=== PATIENT | female | born 1945 | race Caucasian/White ===

== ENCOUNTER 2017-03-31 03:21 | Inpatient (IN) | payer MEDICAID, MEDICARE, OTHER ==
[~2017-03-31] VITALS: Ht 154.9 cm; Wt 74.9 kg
[~2017-03-31 03:21] MED LIST: ACID1TAB3 PO; ACLI400A2 INH; AMIT25TA PO; AMIT75TA PO; ASPI325T17 PO; ASPI325T80 PO; ATOR20TA9 PO; CEFD300C37 PO; CIPR500S2 PO; DIPH25CA61 PO; FLUD0.1T PO; FLUO40CA2 PO; GABA300C10 PO; HYDR-3240 PO; HYDR1TAB12 PO; INSU100C SQ-INSULIN; INSU100I13 SC; INSU100I17 SC; INSU100V11 SC; INSU100V13 SC; INSU300I SQ; LEVO750T26 PO; LOPE2TAB59 PO; METF500T4 PO; METR500T8 PO; ONDA4TAB10 PO; PANT40TA5 PO; PIOG45TA20 PO; TIOT18CA INH; atrovastatin PO
[2017-03-31] MEDS ORDERED: ONDANSETRON 2MG/ML, 2ML ONE (03:52)
[2017-03-31] MEDS ORDERED: ONDANSETRON 2MG/ML, 2ML IVPush ONE (04:00)
[2017-03-31] MEDS ORDERED: ONDANSETRON ODT 4 MG ONE (04:40)
[2017-03-31 04:57] LABS: HEMOGLOBIN 15.5 g/dL (11.7-16.4); WHITE BLOOD COUNT 14.8 x10^3/uL (3.4-10)
[2017-03-31] MEDS ORDERED: ONDANSETRON ODT 4 MG PO ONE (05:00)
[2017-03-31] MEDS ORDERED: CEFTRIAXONE PMX 1GM/50ML 50 ML IV ONE (05:00)
[2017-03-31 05:06] LABS: ASPARTATE AMINO TRANSFERASE 18 U/L (15-37); BLOOD UREA NITROGEN 30 mg/dL (7-18)
[2017-03-31] MEDS ORDERED: INSULIN REGULAR 100 UNITS/ML, 3ML VIAL ONE (05:24)
[2017-03-31] MEDS ORDERED: INSULIN REGULAR 100 UNITS/ML, 3ML VIAL IVPush ONE (05:30)
[2017-03-31] MEDS ORDERED: SODIUM CHLORIDE 0.9% 1,000ML IVBOLUS ONE (05:30)
[2017-03-31] MEDS ORDERED: CEFTRIAXONE PMX 1GM/50ML 50 ML ONE (05:35)
[2017-03-31] MEDS ORDERED: BISACODYL 10 MG SUPP PR PRN (08:00)
[2017-03-31] MEDS ORDERED: ACETAMINOPHEN 325 MG TABLET PO PRN (08:00)
[2017-03-31] MEDS ORDERED: ONDANSETRON ODT 4 MG PO PRN (08:00)
[2017-03-31] MEDS ORDERED: LABETALOL 5MG/ML, 20ML IVPush PRN (08:00)
[2017-03-31] MEDS ORDERED: DOCUSATE 100 MG CAPSULE PO PRN (08:00)
[2017-03-31] MEDS ORDERED: ONDANSETRON 2MG/ML, 2ML IVPush PRN (08:00)
[2017-03-31] MEDS: NICOTINE 7 MG/24 HR PATCH.TD24 TD SCH (08:14)
[2017-03-31 11:17] VITALS: BP 110/70
[2017-03-31] MEDS: SODIUM CHLORIDE 0.9% 1,000 ML IV SCH ×2 (11:47→21:12)
[2017-03-31] MEDS: GABAPENTIN 300 MG CAPSULE PO SCH ×2 (11:48→21:12)
[2017-03-31] MEDS: HEPARIN 5,000 UNITS/ML, 1ML SQ SCH ×2 (11:48→17:38)
[2017-03-31] MEDS: PANTOPROZOLE 40MG TABLET PO SCH ×2 (11:48→21:11)
[2017-03-31] MEDS: FLUOXETINE 20 MG CAPSULE PO SCH (11:48)
[2017-03-31 13:00] VITALS: BP 110/70
[2017-03-31] MEDS: INSULIN ASPART 100 UNITS/ML, PEN SQ-INSULIN SCH ×2 (17:37→21:12)
[2017-03-31] MEDS: INSULIN DETEMIR 100 UNITS/ML, PEN SQ-INSULIN SCH (17:57)
[2017-03-31 19:41] VITALS: BP 105/71
[2017-03-31] MEDS: ATORVASTATIN 20 MG TABLET PO SCH (21:11)
[2017-03-31] MEDS: AMITRIPTYLINE 25 MG TABLET PO SCH (21:11)
[2017-03-31] MEDS ORDERED: INSULIN ASPART 70/30 100U/ML, PEN SQ-INSULIN ONE (22:00)
[2017-04-01 02:49] VITALS: BP 138/56
[2017-04-01 06:16] LABS: HEMATOCRIT 39.1 % (34.6-47.8); WHITE BLOOD COUNT 10.4 x10^3/uL (3.4-10)
[2017-04-01 06:45] LABS: ASPARTATE AMINO TRANSFERASE 14 U/L (15-37); BLOOD UREA NITROGEN 26 mg/dL (7-18)
[2017-04-01] MEDS: SODIUM CHLORIDE 0.9% 1,000 ML IV SCH (07:00)
[2017-04-01] MEDS: INSULIN ASPART 100 UNITS/ML, PEN SQ-INSULIN SCH ×4 (07:00→21:05)
[2017-04-01 07:15] VITALS: BP 155/76
[2017-04-01] MEDS: HEPARIN 5,000 UNITS/ML, 1ML SQ SCH ×3 (08:00→16:36)
[2017-04-01] MEDS: NICOTINE 7 MG/24 HR PATCH.TD24 TD SCH (08:00)
[2017-04-01] MEDS: FLUOXETINE 20 MG CAPSULE PO SCH (08:45)
[2017-04-01] MEDS: PANTOPROZOLE 40MG TABLET PO SCH ×2 (08:45→21:03)
[2017-04-01] MEDS: CEFTRIAXONE PMX 1GM/50ML 50 ML IV SCH (08:45)
[2017-04-01] MEDS: GABAPENTIN 300 MG CAPSULE PO SCH ×2 (08:48→21:03)
[2017-04-01 15:04] VITALS: BP 126/57
[2017-04-01] MEDS: INSULIN DETEMIR 100 UNITS/ML, PEN SQ-INSULIN SCH (16:36)
[2017-04-01 19:23] VITALS: BP 130/95
[2017-04-01] MEDS: ATORVASTATIN 20 MG TABLET PO SCH (21:03)
[2017-04-01] MEDS: AMITRIPTYLINE 25 MG TABLET PO SCH (21:03)
[2017-04-02] MEDS: HEPARIN 5,000 UNITS/ML, 1ML SQ SCH ×3 (00:45→16:46)
[2017-04-02 02:23] VITALS: BP 126/75
[2017-04-02 07:53] VITALS: BP 107/66
[2017-04-02] MEDS: NICOTINE 7 MG/24 HR PATCH.TD24 TD SCH (08:00)
[2017-04-02] MEDS: CEFTRIAXONE PMX 1GM/50ML 50 ML IV SCH (08:04)
[2017-04-02] MEDS: GABAPENTIN 300 MG CAPSULE PO SCH ×2 (08:05→21:08)
[2017-04-02] MEDS: FLUOXETINE 20 MG CAPSULE PO SCH (08:05)
[2017-04-02] MEDS: PANTOPROZOLE 40MG TABLET PO SCH ×2 (08:05→21:08)
[2017-04-02] MEDS: SODIUM CHLORIDE 0.9% 1,000 ML IV SCH ×2 (08:05→21:08)
[2017-04-02] MEDS: INSULIN ASPART 100 UNITS/ML, PEN SQ-INSULIN SCH ×4 (08:06→21:09)
[2017-04-02] MEDS ORDERED: POTASSIUM PHOSPHATE 22 MEQ in SODIUM CHLORIDE 0.9% 500 ML IV ONE (09:00)
[2017-04-02 13:22] VITALS: BP 148/79
[2017-04-02] MEDS: INSULIN DETEMIR 100 UNITS/ML, PEN SQ-INSULIN SCH (16:46)
[2017-04-02 18:30] VITALS: BP 143/77
[2017-04-02] MEDS: AMITRIPTYLINE 25 MG TABLET PO SCH (21:08)
[2017-04-02] MEDS: ATORVASTATIN 20 MG TABLET PO SCH (21:08)
[2017-04-03] MEDS: HEPARIN 5,000 UNITS/ML, 1ML SQ SCH ×3 (00:02→16:00)
[2017-04-03 00:27] VITALS: BP 149/68
[2017-04-03 05:33] LABS: HEMATOCRIT 39.9 % (34.6-47.8); HEMOGLOBIN 13.4 g/dL (11.7-16.4); WHITE BLOOD COUNT 9.1 x10^3/uL (3.4-10)
[2017-04-03 06:09] LABS: BLOOD UREA NITROGEN 20 mg/dL (7-18)
[2017-04-03] MEDS: INSULIN ASPART 100 UNITS/ML, PEN SQ-INSULIN SCH ×3 (07:00→18:17)
[2017-04-03 07:06] VITALS: BP 140/66
[2017-04-03] MEDS: NICOTINE 7 MG/24 HR PATCH.TD24 TD SCH (08:00)
[2017-04-03] MEDS: FLUOXETINE 20 MG CAPSULE PO SCH (08:03)
[2017-04-03] MEDS: PANTOPROZOLE 40MG TABLET PO SCH (08:03)
[2017-04-03] MEDS: GABAPENTIN 300 MG CAPSULE PO SCH (08:03)
[2017-04-03] MEDS: SODIUM CHLORIDE 0.9% 1,000 ML IV SCH (09:05)
[2017-04-03] MEDS: CEFTRIAXONE PMX 1GM/50ML 50 ML IV SCH (09:05)
[2017-04-03] MEDS ORDERED: SODIUM PHOSPHATE 20 MMOL in SODIUM CHLORIDE 0.9% 500 ML IV ONE (11:30)
[2017-04-03] MEDS ORDERED: ERGOCALCIFEROL 50,000 UNIT CAPSULE PO SCH (13:00)
[2017-04-03] MEDS ORDERED: INSU100C SQ-INSULIN (13:11)
[2017-04-03] MEDS ORDERED: DOCU-131 PO (13:11)
[2017-04-03] MEDS ORDERED: ERGO500017 PO (13:11)
[2017-04-03] MEDS ORDERED: CEFD300C37 PO (13:11)
[2017-04-03 13:40] VITALS: BP 144/76
[2017-04-03] MEDS ORDERED: INSULIN DETEMIR 100 UNITS/ML, PEN SQ-INSULIN SCH (17:00)
[2017-04-09] MEDS ORDERED: INSU300I SQ (16:50)
[2017-04-09] MEDS ORDERED: INSU100I18 SQ-INSULIN (16:50)
[2017-04-09] MEDS ORDERED: ASPI-650 PO (16:52)
== END 2017-04-03 18:37 | disposition home or self-care (01) | DRG 683 ==
LOC: ED 05:01 → EDIP 06:26 → 4EST 10:59
PROVIDERS: ADMIT Family Medicine; ATTEND Family Medicine
DX: N17.9 Acute kidney failure, unspecified (principal); N39.0 Urinary tract infection, site not specified; E44.0 Moderate protein-calorie malnutrition; E11.22 Type 2 diabetes mellitus with diabetic chronic kidney disease; E11.51 Type 2 diabetes mellitus with diabetic peripheral angiopathy without gangrene; E11.65 Type 2 diabetes mellitus with hyperglycemia; N12 Tubulo-interstitial nephritis, not specified as acute or chronic; N18.9 Chronic kidney disease, unspecified; E55.9 Vitamin D deficiency, unspecified; E78.5 Hyperlipidemia, unspecified; B96.20 Unspecified Escherichia coli [E. coli] as the cause of diseases classified elsewhere; E83.39 Other disorders of phosphorus metabolism; F17.200 Nicotine dependence, unspecified, uncomplicated; J44.9 Chronic obstructive pulmonary disease, unspecified; K21.9 Gastro-esophageal reflux disease without esophagitis; Z87.442 Personal history of urinary calculi; Z83.3 Family history of diabetes mellitus; Z59.9 Problem related to housing and economic circumstances, unspecified; Z98.42 Cataract extraction status, left eye; Z98.41 Cataract extraction status, right eye; Z88.6 Allergy status to analgesic agent; Z71.6 Tobacco abuse counseling; Z88.3 Allergy status to other anti-infective agents; Z88.5 Allergy status to narcotic agent; Z88.0 Allergy status to penicillin
CPT/HCPCS: 36415; 80048; 80053; 80061; 81001; 82010; 82306; 82607; 82947; 82962; 83036; 83605; 83690; 83735; 84100; 84439; 84443; 85025; 85610; 87040; 87077; 87086; 87186; 93005; 96361; 96365; 96375; J0696; J1644; J1815; Q0162; J7030; J7040

== ENCOUNTER 2017-05-07 04:37 | Inpatient (IN) | payer MEDICARE ==
[~2017-05-07] VITALS: Ht 167.6 cm; Wt 77.0 kg
[~2017-05-07 04:37] MED LIST changes: +ASPI-650 PO; +DOCU-131 PO; +ERGO500017 PO; +INSU100I18 SQ-INSULIN
[2017-05-07] MEDS ORDERED: ONDANSETRON 2MG/ML, 2ML ONE (05:04)
[2017-05-07 05:23] LABS: MEAN CORPUSCULAR HGB CONC 32.4 g/dL (32.4-35.8); MEAN CORPUSCULAR VOLUME 89.6 fL (80-100); MEAN PLATELET VOLUME 8.6 fL (7.4-10.4); PLATELET COUNT 428 x10^3/uL (130-400); RED BLOOD COUNT 5.35 x10^6/uL (3.82-5.3); RED CELL DISTRIBUTION WIDTH 15.3 % (9.6-15.2)
[2017-05-07] MEDS ORDERED: ONDANSETRON 2MG/ML, 2ML IVPush ONE (05:30)
[2017-05-07] MEDS ORDERED: SODIUM CHLORIDE FLUSH 10ML SYR IVF ONE (05:30)
[2017-05-07] MEDS ORDERED: SODIUM CHLORIDE 0.9% 1,000ML IVBOLUS ONE ×3 (05:30→08:00)
[2017-05-07 05:45] LABS: ALBUMIN 3.4 g/dL (3.4-5.0); ANION GAP 17 mmol/L (5-15); CHLORIDE 100 mmol/L (98-107)
[2017-05-07 05:48] LABS: ALANINE AMINOTRANSFERASE 22 U/L (12-78); ALKALINE PHOSPHATASE 127 U/L (45-117); BILIRUBIN,TOTAL 0.5 mg/dL (0.2-1.0); CREATININE 3.47 mg/dL (0.55-1.02); TOTAL PROTEIN 9.3 g/dL (6.4-8.2)
[2017-05-07 05:49] LABS: BASOPHILS # (AUTO) 0.06 x10^3/uL (0-0.1); BASOPHILS % (AUTO) 0 % (0-1); EOSINOPHILS # (AUTO) 0.15 x10^3/uL (0-0.4); EOSINOPHILS % (AUTO) 1 % (1-7); LYMPHOCYTES # (AUTO) 4.64 x10^3/uL (1-3.4); LYMPHOCYTES % (AUTO) 25 % (22-44); MD SCAN; MONOCYTES # (AUTO) 0.67 x10^3/uL (0.2-0.8); MONOCYTES % (AUTO) 4 % (2-9); NEUTROPHILS % (AUTO) 70 % (42-75)
[2017-05-07 07:58] LABS: CULTURE INDICATED? YES; MICROSCOPIC INDICATED
[2017-05-07] MEDS ORDERED: CEFTRIAXONE PMX 1GM/50ML 50 ML IV ONE (08:00)
[2017-05-07] MEDS ORDERED: CEFTRIAXONE PMX 1GM/50ML 50 ML ONE (08:04)
[2017-05-07] MEDS ORDERED: SODIUM CHLORIDE 0.9% 1,000 ML IV SCH (09:30)
[2017-05-07] MEDS ORDERED: ONDANSETRON 2MG/ML, 2ML IVPush PRN (09:30)
[2017-05-07] MEDS ORDERED: ACETAMINOPHEN 325 MG TABLET PO PRN (09:30)
[2017-05-07] MEDS ORDERED: FLUCONAZOLE 200 MG/100 ML 100 ML IV SCH (09:30)
[2017-05-07 09:32] LABS: CLOSTRIDIUM DIFFICILE ANTIGEN NEGATIVE; CLOSTRIDIUM DIFFICILE TOXIN NEGATIVE (Negative)
[2017-05-07] MEDS ORDERED: ALBUTEROL/IPRATROPIUM 2.5MG/0.5MG, 3 ML NPPB PRN (10:00)
[2017-05-07] MEDS: NICOTINE 14MG/24 HR PATCH.TD24 TD SCH (10:00)
[2017-05-07] MEDS: INSULIN ASPART 100 UNITS/ML, PEN SQ-INSULIN SCH ×3 (11:00→22:23)
[2017-05-07] MEDS ORDERED: HYDROmorphone 2 MG/ML, 1ML ONE (11:43)
[2017-05-07 12:36] VITALS: BP 110/54
[2017-05-07 14:57] LABS: CREATININE 2.16 mg/dL (0.55-1.02)
[2017-05-07] MEDS: GABAPENTIN 300 MG CAPSULE PO SCH ×2 (17:01→21:07)
[2017-05-07] MEDS: D5%-0.9% NACL 1,000 ML IV SCH (17:24)
[2017-05-07] MEDS ORDERED: DEXTROSE 4 GM TAB.CHEW PO PRN (17:30)
[2017-05-07] MEDS ORDERED: GLUCAGON 1 MG IM PRN (17:30)
[2017-05-07] MEDS ORDERED: DEXTROSE 50%, 50ML SYRINGE IVPush PRN (17:30)
[2017-05-07 18:30] VITALS: BP 137/66
[2017-05-07] MEDS: HEPARIN 5,000 UNITS/ML, 1ML SQ SCH (21:08)
[2017-05-07] MEDS: ATORVASTATIN 20 MG TABLET PO SCH (21:08)
[2017-05-07] MEDS: SODIUM CHLORIDE FLUSH 10ML SYR IVF SCH (21:08)
[2017-05-07] MEDS: INSULIN DETEMIR 100 UNITS/ML, PEN SQ-INSULIN SCH (22:24)
[2017-05-08] MEDS: D5%-0.9% NACL 1,000 ML IV SCH ×3 (01:31→21:46)
[2017-05-08 04:08] VITALS: BP 99/59
[2017-05-08 05:41] LABS: ANION GAP 7 mmol/L (5-15); CALCIUM 7.6 mg/dL (8.5-10.1); CHLORIDE 116 mmol/L (98-107); CREATININE 1.46 mg/dL (0.55-1.02)
[2017-05-08] MEDS: INSULIN ASPART 100 UNITS/ML, PEN SQ-INSULIN SCH ×4 (07:00→21:47)
[2017-05-08 07:10] VITALS: BP 126/76
[2017-05-08] MEDS ORDERED: CEFTRIAXONE PMX 2GM/50ML 50 ML IV SCH (08:00)
[2017-05-08] MEDS: NICOTINE 14MG/24 HR PATCH.TD24 TD SCH (08:16)
[2017-05-08] MEDS: GABAPENTIN 300 MG CAPSULE PO SCH ×3 (08:53→21:41)
[2017-05-08] MEDS: ASPIRIN 325 MG TABLET EC PO SCH (08:53)
[2017-05-08] MEDS: FLUOXETINE 20 MG CAPSULE PO SCH (08:53)
[2017-05-08] MEDS: HEPARIN 5,000 UNITS/ML, 1ML SQ SCH ×2 (08:53→21:41)
[2017-05-08] MEDS ORDERED: CALCIUM GLUCONATE 4.6 MEQ in SODIUM CHLORIDE 0.9% 50 ML IV ONE (09:30)
[2017-05-08 10:18] LABS: BASOPHILS # (AUTO) 0.06 x10^3/uL (0-0.1); BASOPHILS % (AUTO) 1 % (0-1); EOSINOPHILS # (AUTO) 0.14 x10^3/uL (0-0.4); EOSINOPHILS % (AUTO) 2 % (1-7); LYMPHOCYTES # (AUTO) 2.27 x10^3/uL (1-3.4); LYMPHOCYTES % (AUTO) 25 % (22-44); MD NO; MEAN CORPUSCULAR HEMOGLOBIN 29.5 pg (27.0-34.8); MEAN CORPUSCULAR HGB CONC 32.6 g/dL (32.4-35.8); MEAN CORPUSCULAR VOLUME 90.3 fL (80-100); MEAN PLATELET VOLUME 8.3 fL (7.4-10.4); MONOCYTES # (AUTO) 0.52 x10^3/uL (0.2-0.8); MONOCYTES % (AUTO) 6 % (2-9); NEUTROPHILS # (AUTO) 6.22 x10^3/uL (1.8-6.8); NEUTROPHILS % (AUTO) 68 % (42-75); PLATELET COUNT 289 x10^3/uL (130-400); RED BLOOD COUNT 3.72 x10^6/uL (3.82-5.3); RED CELL DISTRIBUTION WIDTH 15.6 % (9.6-15.2)
[2017-05-08 10:20] LABS: HEMOGRAM NOTE RECHECKED
[2017-05-08] MEDS: SODIUM CHLORIDE FLUSH 10ML SYR IVF SCH ×2 (12:59→21:42)
[2017-05-08] MEDS: LINEZOLID PMX 600MG/300ML 300 ML IV SCH (12:59)
[2017-05-08 13:03] VITALS: BP 121/67
[2017-05-08 13:50] VITALS: BP 142/54
[2017-05-08 20:21] VITALS: BP 143/70
[2017-05-08] MEDS: ATORVASTATIN 20 MG TABLET PO SCH (21:41)
[2017-05-08] MEDS: INSULIN DETEMIR 100 UNITS/ML, PEN SQ-INSULIN SCH (21:47)
[2017-05-09 00:50] VITALS: BP 164/77
[2017-05-09] MEDS: LINEZOLID PMX 600MG/300ML 300 ML IV SCH ×2 (01:20→13:10)
[2017-05-09 05:30] LABS: BASOPHILS # (AUTO) 0.05 x10^3/uL (0-0.1); BASOPHILS % (AUTO) 1 % (0-1); EOSINOPHILS # (AUTO) 0.24 x10^3/uL (0-0.4); EOSINOPHILS % (AUTO) 3 % (1-7); LYMPHOCYTES # (AUTO) 2.34 x10^3/uL (1-3.4); LYMPHOCYTES % (AUTO) 25 % (22-44); MD NO; MEAN CORPUSCULAR HEMOGLOBIN 29.6 pg (27.0-34.8); MEAN CORPUSCULAR HGB CONC 32.6 g/dL (32.4-35.8); MEAN CORPUSCULAR VOLUME 90.8 fL (80-100); MEAN PLATELET VOLUME 8.7 fL (7.4-10.4); MONOCYTES # (AUTO) 0.47 x10^3/uL (0.2-0.8); MONOCYTES % (AUTO) 5 % (2-9); NEUTROPHILS % (AUTO) 67 % (42-75); PLATELET COUNT 293 x10^3/uL (130-400); RED BLOOD COUNT 3.94 x10^6/uL (3.82-5.3); RED CELL DISTRIBUTION WIDTH 15.3 % (9.6-15.2)
[2017-05-09 05:54] LABS: CHLORIDE 113 mmol/L (98-107)
[2017-05-09 06:02] LABS: ALANINE AMINOTRANSFERASE 13 U/L (12-78); ALBUMIN 2.5 g/dL (3.4-5.0); ALKALINE PHOSPHATASE 76 U/L (45-117); ANION GAP 6 mmol/L (5-15); BILIRUBIN,TOTAL 0.2 mg/dL (0.2-1.0); CALCIUM 7.9 mg/dL (8.5-10.1); CREATININE 1.19 mg/dL (0.55-1.02); TOTAL PROTEIN 6.4 g/dL (6.4-8.2)
[2017-05-09] MEDS: D5%-0.9% NACL 1,000 ML IV SCH ×2 (06:07→15:00)
[2017-05-09] MEDS: INSULIN ASPART 100 UNITS/ML, PEN SQ-INSULIN SCH ×3 (07:00→16:17)
[2017-05-09 07:05] VITALS: BP 170/80
[2017-05-09] MEDS ORDERED: MAGNESIUM SULFATE PMX 2GM/50ML 50 ML IV ONE (08:00)
[2017-05-09] MEDS ORDERED: SODIUM PHOSPHATE 20 MMOL in SODIUM CHLORIDE 0.9% 500 ML IV ONE (08:00)
[2017-05-09] MEDS: GABAPENTIN 300 MG CAPSULE PO SCH ×2 (09:00→16:17)
[2017-05-09] MEDS: HEPARIN 5,000 UNITS/ML, 1ML SQ SCH (09:00)
[2017-05-09] MEDS: FLUOXETINE 20 MG CAPSULE PO SCH (09:00)
[2017-05-09] MEDS ORDERED: LISINOPRIL 10 MG TABLET PO SCH (09:00)
[2017-05-09] MEDS: ASPIRIN 325 MG TABLET EC PO SCH (09:00)
[2017-05-09] MEDS: SODIUM CHLORIDE FLUSH 10ML SYR IVF SCH (09:00)
[2017-05-09] MEDS: NICOTINE 14MG/24 HR PATCH.TD24 TD SCH (10:00)
[2017-05-09 12:44] VITALS: BP 169/70
[2017-05-09] MEDS ORDERED: LINE600T37 PO (15:21)
[2017-05-09] MEDS ORDERED: INSU100I18 SQ-INSULIN (15:30)
== END 2017-05-09 17:20 | disposition home or self-care (01) | DRG 871 ==
LOC: ED 05:56 → EDIP 08:04 → 4EST 12:14
PROVIDERS: ADMIT Hospitalist; ATTEND Hospitalist
PROC: 02HV33Z Insertion of Infusion Device into Superior Vena Cava, Percutaneous Approach (ICD-10-PCS; principal; 2017-05-07)
DX: A41.9 Sepsis, unspecified organism (principal); N17.0 Acute kidney failure with tubular necrosis; J96.01 Acute respiratory failure with hypoxia; N39.0 Urinary tract infection, site not specified; E11.22 Type 2 diabetes mellitus with diabetic chronic kidney disease; E11.51 Type 2 diabetes mellitus with diabetic peripheral angiopathy without gangrene; E83.51 Hypocalcemia; E86.1 Hypovolemia; I12.9 Hypertensive chronic kidney disease with stage 1 through stage 4 chronic kidney disease, or unspecified chronic kidney disease; J44.9 Chronic obstructive pulmonary disease, unspecified; N18.2 Chronic kidney disease, stage 2 (mild); R65.20 Severe sepsis without septic shock; Z86.73 Personal history of transient ischemic attack (TIA), and cerebral infarction without residual deficits; Z87.440 Personal history of urinary (tract) infections; Z88.0 Allergy status to penicillin; Z79.82 Long term (current) use of aspirin; Z79.899 Other long term (current) drug therapy; Z90.49 Acquired absence of other specified parts of digestive tract; Z88.8 Allergy status to other drugs, medicaments and biological substances
CPT/HCPCS: 36415; 36556; 71045; 80048; 80053; 81001; 82565; 82962; 83605; 83690; 83735; 84100; 85025; 87040; 87077; 87086; 87186; 87324; 93005; 96365; 96366; 96368; 96375; J0610; J0696; J1644; J1815; J2020; J2405; J7042; J1450; J3475; J7030; J7040

== ENCOUNTER → 2017-06-09 | Outpatient (CLI) | payer MEDICARE ==
[~2017-06-09] MED LIST changes: +LINE600T37 PO
== END | disposition home or self-care (01) ==
LOC: CFH 12:57
PROVIDERS: ATTEND Family Medicine
DX: Z13.820 Encounter for screening for osteoporosis (principal); M81.0 Age-related osteoporosis without current pathological fracture; Z78.0 Asymptomatic menopausal state
CPT/HCPCS: 77080